=== PATIENT | male | born 1960 | race African-American/Black ===

== ENCOUNTER 2017-06-18 23:40 | Emergency (ER) | payer BC, OTHER ==
[~2017-06-18] VITALS: Ht 182.9 cm; Wt 127.0 kg
--- NOTE | 2017-06-19 01:48 | NUR ---
RPT BIBSELF C/O RT ARM PAIN AND BIK FEET SWELLING X2 WEEKS. PT AOX3 RR EVEN AND UNLABORED. NO SOB NOTED. NAD NOTED. NO NVD AT THIS TIME. PT GOWNED AND PLACED ON MONITOR WAITING FOR MD PHAM.
--- NOTE | 2017-06-19 02:15 | NUR ---
DR. ESPINOZA AT BEDSIDE FOR EVAL.
--- NOTE | 2017-06-19 02:23 | NUR ---
LAB AT BEDSIDE FOR BLOOD DRAW
--- NOTE | 2017-06-19 02:28 | NUR ---
CALLED MICHELLE MAJOR U/S TECH
[2017-06-19 02:33] LABS: BASOPHILS % (AUTO) 0.7 % (0.0-2.0); EOSINOPHILS % (AUTO) 5.7 % (0.0-6.0); HEMATOCRIT 40 % (39-51); HEMOGLOBIN 13.3 g/dL (13.5-17.5); LYMPHOCYTES # (AUTO) 1.8 /CMM (0.8-4.8); MEAN CORPUSCULAR HGB CONC 33 g/dl (31.0-36.0); MEAN CORPUSCULAR VOLUME 86 fL (80-96); MONOCYTES # (AUTO) 0.8 /CMM (0.1-1.30); NEUTROPHILS # (AUTO) 3.3 /CMM (1.8-8.9); NEUTROPHILS % (AUTO) 52.6 % (43.0-81.0); PLATELET COUNT (AUTO) 163 /CMM (150-450); RDW COEFFICIENT OF VARIATION 14.2 (11.5-15.0); RED BLOOD CELL COUNT(AUTO) 4.68 MIL/uL (4.5-6.0); WHITE BLOOD COUNT (AUTO) 6.3 K/uL (4.3-11.0)
[2017-06-19 02:55] LABS: POTASSIUM 4.3 mmol/L (3.5-5.1)
[2017-06-19 02:58] LABS: ALBUMIN 3.8 g/dL (3.4-5.0); BILIRUBIN,DIRECT 0.2 mg/dL (0.0-0.2); BILIRUBIN,TOTAL 0.4 mg/dL (0.2-1.0); TOTAL PROTEIN, SERUM 6.9 g/dL (6.4-8.2)
--- NOTE | 2017-06-19 03:00 | NUR ---
DHARMESH AT BEDSIDE
--- NOTE | 2017-06-19 04:50 | NUR ---
DR. ESPINOZA AT BEDSIDE SPEAKING TO PT REGARDING RESULTS.
[2017-06-19 05:03] VITALS: BP 144/89
--- NOTE | 2017-06-19 05:03 | NUR ---
Patient discharged to home in stable condition. Written and verbal after care instructions given. Patient verbalizes understanding of instruction. ambulatory with a steady gait
== END 2017-06-19 05:04 | disposition home or self-care (01) ==
LOC: ER 23:46
DX: M79.89 Other specified soft tissue disorders (principal); I10 Essential (primary) hypertension
CPT/HCPCS: 36415; 80048-TC; 80076-TC; 85025-TC; 93971-TC; A4606; Z7610

== ENCOUNTER 2020-06-28 04:59 | Emergency (ER) | payer BC, OTHER ==
[~2020-06-28] VITALS: Ht 198.1 cm; Wt 122.5 kg
[2020-06-28 05:49] VITALS: BP 175/101
[2020-06-28] MEDS ORDERED: CLONIDINE HCL 0.1 MG TABLET ONE (05:50)
[2020-06-28] MEDS ORDERED: CLONIDINE HCL 0.1 MG TABLET PO ONE (06:00)
--- NOTE | 2020-06-28 06:15 | NUR ---
Patient discharged to home in stable condition. Written and verbal after care instructions given. Patient verbalizes understanding of instruction.
== END 2020-06-28 06:16 | disposition home or self-care (01) ==
LOC: ER 05:02
DX: I10 Essential (primary) hypertension (principal)

== ENCOUNTER 2020-11-13 20:41 | Emergency (ER) | payer BC ==
[~2020-11-13] VITALS: Ht 198.1 cm; Wt 122.5 kg
--- NOTE | 2020-11-13 21:05 | NUR ---
PATIENT BIBRA 102 FROM HOME WITH C/O ON AND OFF LEFT SIDED NONRADIATING CHEST PAIN, RATED AT 5/10. PATIENT IS A/O X 4, RR EVEN AND UNLABORED, NO SOB NTOED. PATIENT IS CONNECTED TO CARDIAC AND POX MONITOR.
--- NOTE | 2020-11-13 21:10 | NUR ---
PATIENT AGREED TO BLOOD DRAW, PT WANTED NO IV SL AT THIS TIME.
--- NOTE | 2020-11-13 21:15 | NUR ---
PT PROVIDED WITH WARM BLANKETS.
[2020-11-13 21:27] LABS: BASOPHILS # (AUTO) 0.1 K/uL (0.0-0.2); BASOPHILS % (AUTO) 1.3 % (0.0-2.0); HEMATOCRIT 40 % (39-51); HEMOGLOBIN 13.4 g/dL (13.5-17.5); LYMPHOCYTES % (AUTO) 35.3 % (20.0-44.0); MEAN CORPUSCULAR HGB CONC 33 g/dl (31.0-36.0); MEAN CORPUSCULAR VOLUME 87 fL (80-96); MONOCYTES # (AUTO) 0.5 K/uL (0.1-1.30); MONOCYTES % (AUTO) 9.6 % (2.0-12.0); NEUTROPHILS # (AUTO) 2.8 K/uL (1.8-8.9); NEUTROPHILS % (AUTO) 49.8 % (43.0-81.0); PLATELET COUNT (AUTO) 187 K/uL (150-450); RED BLOOD CELL COUNT(AUTO) 4.66 MIL/uL (4.5-6.0); WHITE BLOOD COUNT (AUTO) 5.6 K/uL (4.3-11.0)
[2020-11-13] MEDS ORDERED: ASPIRIN 325 MG TABLET PO ONE (21:30)
[2020-11-13] MEDS ORDERED: NITROGLYCERIN PACKET 1 GM PACKET TD ONE (21:30)
[2020-11-13] MEDS ORDERED: NITROGLYCERIN PACKET 1 GM PACKET ONE (21:33)
[2020-11-13] MEDS ORDERED: ASPIRIN 325 MG TABLET ONE (21:34)
[2020-11-13 21:50] LABS: ALANINE AMINOTRANSFERASE 24 U/L (12-78); ALBUMIN 3.6 g/dL (3.4-5.0); ALKALINE PHOSPHATASE 55 U/L (46-116); ASPARTATE AMINOTRANSFERASE 21 U/L (15-37); BILIRUBIN,DIRECT 0.1 mg/dL (0.0-0.2); BILIRUBIN,TOTAL 0.5 mg/dL (0.2-1.0); CALCIUM, SERUM 9.1 mg/dL (8.5-10.1); CARBON DIOXIDE 28 mmol/L (21-32); CHLORIDE 106 mmol/L (98-107); CREATININE 0.7 mg/dL (0.6-1.3); GLUCOSE 98 mg/dL (74-106); POTASSIUM 3.9 mmol/L (3.5-5.1); SODIUM SERUM 142 mmol/L (136-145); TOTAL PROTEIN, SERUM 6.8 g/dL (6.4-8.2); UREA NITROGEN, BLOOD 11 mg/dL (7-18)
[2020-11-14] MEDS ORDERED: ASPI-1498 PO (00:41)
--- NOTE | 2020-11-14 00:55 | NUR ---
Patient discharged to home in stable condition. Written and verbal after care instructions given. Patient verbalizes understanding of instruction.
[2020-11-14] MEDS ORDERED: ASPIRIN 81 MG TAB.CHEW PO ONE (01:00)
[2020-11-14 01:51] VITALS: BP 154/97
[2020-11-14] MEDS ORDERED: ASPIRIN EC 81 MG TABLET.DR PO ONE (01:51)
== END 2020-11-14 00:55 | disposition home or self-care (01) ==
LOC: ER 20:43
DX: R07.89 Other chest pain (principal); I10 Essential (primary) hypertension; K21.9 Gastro-esophageal reflux disease without esophagitis
CPT/HCPCS: 36415; 71045-TC; 80048-TC; 80076-TC; 84484-TC; 85025-TC